=== PATIENT | male | born 1935 | race Caucasian/White ===

== ENCOUNTER 2017-10-10 14:47 | Inpatient (IN) | payer MEDICARE ==
[~2017-10-10] VITALS: Ht 177.8 cm; Wt 75.3 kg
[2017-10-10 15:41] LABS: MEAN CORPUSCULAR HEMOGLOBIN 32.3 pg (27.0-33.0); MEAN CORPUSCULAR HGB CONC 34.7 g/dL (32.0-36.0); MEAN CORPUSCULAR VOLUME 93.1 fL (79-99); PLATELET COUNT (AUTO) 289 K/uL (130-400); RED BLOOD CELL COUNT(AUTO) 5.37 MIL/uL (4.50-6.20); RED CELL DISTRIBUTION WIDTH 13.6 % (11.0-15.5); WHITE BLOOD COUNT (AUTO) 10.4 K/uL (4.8-10.8)
[2017-10-10 16:00] LABS: ALBUMIN 3.5 g/dL (3.5-5.0); BILIRUBIN,TOTAL 0.7 mg/dL (0.2-1.0); CREATINE KINASE MB 1.3 ng/mL (0.5-3.6); CREATININE 1.1 mg/dL (0.5-1.5); POTASSIUM 4.4 mmol/L (3.5-5.1); TOTAL PROTEIN, SERUM 7.6 g/dL (6.0-8.3)
[2017-10-10 16:11] LABS: BAND NEUTROPHILS % (MANUAL) 2 % (0-2); EOSINOPHILS % (MANUAL) 3 % (1-6); LYMPHOCYTES % (MANUAL) 3 % (22-44); MAN.DIFF COMMENT-IMPRESSION MANUAL DIFFERENTIAL; METAMYELOCYTES % 1 % (0-0); MONOCYTES % (MANUAL) 7 % (2-9); PLATELET MORPHOLOGY COMMENT ADEQUATE; REACTIVE LYMPHOCYTES 6 % (0-0); SEGMENTED NEUTROPHILS % 78 % (40-70)
[2017-10-10] MEDS ORDERED: IOPAMIDOL-370 100 ML VIAL IV ONE (16:39)
[2017-10-10 17:06] LABS: B-TYPE NATRIURETIC PEPTIDE 43 pg/mL (0-100)
[2017-10-10] MEDS ORDERED: SODIUM CHLORIDE 0.9% 1000ML 1,000 ML IV ONE (20:31)
[2017-10-10] MEDS ORDERED: LEVOFLOXACIN 500 MG/D5W 100 ML 100 ML ONE (20:31)
[2017-10-10] MEDS ORDERED: ACETAMINOPHEN 325 MG TAB ONE (22:15)
[2017-10-10] MEDS: SODIUM CHLORIDE 0.9% 1000ML 1,000 ML IV SCH (22:41)
[2017-10-10] MEDS ORDERED: ACETAMINOPHEN-CODEINE 300/30MG TAB PO PRN (22:45)
[2017-10-10] MEDS ORDERED: ONDANSETRON HCL 4 MG/2 ML VIAL IV PRN (22:45)
[2017-10-11] VITALS (9 sets, daily range): BP systolic 131–174; BP diastolic 59–92
[2017-10-11] MEDS ORDERED: HYDRALAZINE HCL 20 MG/ML VIAL ONE ×2 (00:22→05:27)
[2017-10-11] MEDS ORDERED: ACETAMINOPHEN-CODEINE 300/30MG TAB ONE (01:45)
[2017-10-11 05:52] LABS: BASOPHILS % (AUTO) 0.5 % (0.0-5.0); EOSINOPHILS % (AUTO) 3.8 % (0.0-8.0); HEMATOCRIT 48.7 % (42-54); LYMPHOCYTES % (AUTO) 9.4 % (21.0-51.0); MEAN CORPUSCULAR HEMOGLOBIN 31.9 pg (27.0-33.0); MEAN CORPUSCULAR HGB CONC 34.2 g/dL (32.0-36.0); MEAN CORPUSCULAR VOLUME 93.4 fL (79-99); NEUTROPHILS % (AUTO) 74.3 % (40.0-77.0); NUCLEATED RED BLOOD CELLS 0.2 % (0.0-0.19); PLATELET COUNT (AUTO) 275 K/uL (130-400); RED BLOOD CELL COUNT(AUTO) 5.22 MIL/uL (4.50-6.20); RED CELL DISTRIBUTION WIDTH 13.7 % (11.0-15.5); WHITE BLOOD COUNT (AUTO) 10.5 K/uL (4.8-10.8)
[2017-10-11 06:03] LABS: CREATININE 1.3 mg/dL (0.5-1.5); POTASSIUM 4.1 mmol/L (3.5-5.1)
[2017-10-11] MEDS ORDERED: IPRATROPIUM/ALBUTEROL SULFATE 3 ML SOLUTION IH ONE (07:33)
[2017-10-11 09:01] LABS: INR 1.18 (0.85-1.15); PARTIAL THROMBOPLASTIN TIME 29.7 SEC (26.3-35.5); PROTHROMBIN TIME 12.3 SEC (9.6-11.6)
[2017-10-11] MEDS: IPRATROPIUM/ALBUTEROL SULFATE 3 ML SOLUTION IH SCH ×3 (10:23→20:39)
[2017-10-11] MEDS: PANTOPRAZOLE SODIUM 40 MG TABLET.DR PO SCH (11:02)
[2017-10-11] MEDS: SODIUM CHLORIDE 0.9% 1000ML 1,000 ML IV SCH ×3 (11:04→21:34)
[2017-10-11 13:10] LABS: APPEARANCE BODY FLUID TURBID (CLEAR); COLOR,BODY FLUID RED (LT YELLOW); SPECIMENTYPE,BODY FLUID PLEURAL
[2017-10-11 13:11] LABS: BODY FLUID WBC 1129 /cu. mm.; TOTAL VOLUME,BODY FLUID 1500 mL
[2017-10-11 13:12] LABS: BODY FLUID RBC 100375 /cu. mm.
[2017-10-11 13:15] LABS: GLUCOSE,BODY FLUID 138 mg/dL (1-40)
[2017-10-11 13:31] LABS: BF LYMPHOCYTE 49 %; BF MESOTHELIAL 42 %; BF MONOCYTE 4 %
[2017-10-12] MEDS: IPRATROPIUM/ALBUTEROL SULFATE 3 ML SOLUTION IH SCH ×7 (00:20→22:37)
[2017-10-12] MEDS: HYDRALAZINE HCL 20 MG/ML VIAL IV PRN ×3 (00:31→20:53)
[2017-10-12 03:00] VITALS: BP 149/79
[2017-10-12] MEDS: SODIUM CHLORIDE 0.9% 1000ML 1,000 ML IV SCH ×2 (05:12→15:23)
[2017-10-12] MEDS: ACETAMINOPHEN 325 MG TAB PO PRN (06:03)
[2017-10-12 07:39] VITALS: BP 165/75
[2017-10-12] MEDS: PANTOPRAZOLE SODIUM 40 MG TABLET.DR PO SCH (10:02)
[2017-10-12] MEDS: LEVOFLOXACIN 500 MG/D5W 100 ML 100 ML IV SCH (10:02)
[2017-10-12 11:21] VITALS: BP 160/67
[2017-10-12 16:08] VITALS: BP 165/76
[2017-10-12 19:00] VITALS: BP 169/86
[2017-10-13] VITALS (7 sets, daily range): BP systolic 122–184; BP diastolic 57–94
[2017-10-13] MEDS: ACETAMINOPHEN 325 MG TAB PO PRN ×2 (01:21→19:52)
[2017-10-13] MEDS: IPRATROPIUM/ALBUTEROL SULFATE 3 ML SOLUTION IH SCH ×6 (02:54→23:11)
[2017-10-13] MEDS ORDERED: LEVO125T95 PO (06:11)
[2017-10-13] MEDS: PANTOPRAZOLE SODIUM 40 MG TABLET.DR PO SCH (09:27)
[2017-10-13] MEDS: LEVOFLOXACIN 500 MG/D5W 100 ML 100 ML IV SCH (09:29)
[2017-10-13] MEDS: SODIUM CHLORIDE 0.9% 1000ML 1,000 ML IV SCH ×4 (09:31→22:41)
[2017-10-13] MEDS: HYDRALAZINE HCL 20 MG/ML VIAL IV PRN ×2 (12:55→19:51)
[2017-10-14] VITALS (7 sets, daily range): BP systolic 120–163; BP diastolic 58–97
[2017-10-14] MEDS: IPRATROPIUM/ALBUTEROL SULFATE 3 ML SOLUTION IH SCH ×4 (02:05→14:00)
[2017-10-14 05:42] LABS: POTASSIUM 3.8 mmol/L (3.5-5.1)
[2017-10-14] MEDS: SODIUM CHLORIDE 0.9% 1000ML 1,000 ML IV SCH ×3 (06:58→21:57)
[2017-10-14] MEDS: PANTOPRAZOLE SODIUM 40 MG TABLET.DR PO SCH (09:21)
[2017-10-14] MEDS ORDERED: METO-391 PO (10:00)
[2017-10-14] MEDS ORDERED: NIFE60TA71 PO (10:04)
[2017-10-14] MEDS ORDERED: LEVO125T11 PO (10:04)
[2017-10-14] MEDS ORDERED: VENL-53 PO (10:04)
[2017-10-14] MEDS ORDERED: FURO20TA4 PO (10:04)
[2017-10-14] MEDS ORDERED: LISI-613 PO (10:04)
[2017-10-14] MEDS ORDERED: ATOR-2 PO (10:04)
[2017-10-14] MEDS ORDERED: DIATR MEGLU/DIATRIZOATE SODIUM 30 ML BOTTLE PO ONE (15:25)
[2017-10-14] MEDS ORDERED: IOPAMIDOL-370 100 ML VIAL IV ONE (17:42)
[2017-10-15] MEDS: HYDRALAZINE HCL 20 MG/ML VIAL IV PRN ×4 (00:16→21:57)
[2017-10-15 04:00] VITALS: BP 179/90
[2017-10-15 05:51] LABS: CREATININE 0.9 mg/dL (0.5-1.5); POTASSIUM 3.9 mmol/L (3.5-5.1)
[2017-10-15] MEDS: SODIUM CHLORIDE 0.9% 1000ML 1,000 ML IV SCH (05:56)
[2017-10-15] MEDS ORDERED: IPRATROPIUM/ALBUTEROL SULFATE 3 ML SOLUTION IH ONE (07:24)
[2017-10-15 08:00] VITALS: BP 145/79
[2017-10-15] MEDS: PANTOPRAZOLE SODIUM 40 MG TABLET.DR PO SCH (08:41)
[2017-10-15] MEDS: LEVOFLOXACIN 500 MG/D5W 100 ML 100 ML IV SCH (08:41)
[2017-10-15 11:00] VITALS: BP 182/85
[2017-10-15] MEDS: IPRATROPIUM/ALBUTEROL SULFATE 3 ML SOLUTION IH SCH (11:01)
[2017-10-15] MEDS: LORATADINE 10 MG TABLET PO SCH (13:44)
[2017-10-15] MEDS: BENZONATATE 100 MG CAPSULE PO PRN ×2 (13:44→21:17)
[2017-10-15 16:00] VITALS: BP 190/88
[2017-10-15] MEDS ORDERED: IPRATROPIUM/ALBUTEROL SULFATE 3 ML SOLUTION IH SCH (18:00)
[2017-10-15 19:45] VITALS: BP 191/90
[2017-10-15] MEDS: METOPROLOL TARTRATE 25 MG TAB PO SCH (19:59)
[2017-10-15] MEDS: VENLAFAXINE HCL 75 MG TAB PO SCH (19:59)
[2017-10-15] MEDS: ATORVASTATIN CALCIUM 40 MG TABLET PO SCH (20:17)
[2017-10-16] VITALS (16 sets, daily range): BP systolic 121–193; BP diastolic 62–103
[2017-10-16 05:46] LABS: INR 1.23 (0.85-1.15); PARTIAL THROMBOPLASTIN TIME 26.1 SEC (26.3-35.5); PROTHROMBIN TIME 12.9 SEC (9.6-11.6)
[2017-10-16] MEDS: LEVOTHYROXINE 125 MCG TABLET PO SCH (06:42)
[2017-10-16] MEDS: LEVOFLOXACIN 500 MG/D5W 100 ML 100 ML IV SCH (09:54)
[2017-10-16] MEDS: METOPROLOL TARTRATE 25 MG TAB PO SCH ×2 (09:55→19:54)
[2017-10-16] MEDS ORDERED: FENTANYL CITRATE PF 50 MCG/1 ML 2ML VIAL ONE (11:52)
[2017-10-16] MEDS ORDERED: MIDAZOLAM HCL 1 MG/ML 2ML VIAL ONE (11:53)
[2017-10-16] MEDS: LISINOPRIL 20 MG TABLET PO SCH (12:43)
[2017-10-16] MEDS: FUROSEMIDE 20 MG TABLET PO SCH (12:43)
[2017-10-16] MEDS: LORATADINE 10 MG TABLET PO SCH (12:43)
[2017-10-16] MEDS: PANTOPRAZOLE SODIUM 40 MG TABLET.DR PO SCH (12:43)
[2017-10-16] MEDS: NIFEDIPINE ER 30 MG TAB PO SCH (12:44)
[2017-10-16] MEDS: HYDRALAZINE HCL 20 MG/ML VIAL IV PRN (12:45)
[2017-10-16] MEDS: IPRATROPIUM/ALBUTEROL SULFATE 3 ML SOLUTION IH SCH (13:01)
[2017-10-16] MEDS: ATORVASTATIN CALCIUM 40 MG TABLET PO SCH (19:53)
[2017-10-16] MEDS: VENLAFAXINE HCL 75 MG TAB PO SCH (19:54)
[2017-10-17] MEDS: BENZONATATE 100 MG CAPSULE PO PRN ×2 (00:39→08:26)
[2017-10-17 03:00] VITALS: BP 143/66
[2017-10-17 05:41] LABS: BASOPHILS % (AUTO) 0.3 % (0.0-5.0); EOSINOPHILS % (AUTO) 3.3 % (0.0-8.0); HEMATOCRIT 43.3 % (42-54); MEAN CORPUSCULAR HEMOGLOBIN 31.3 pg (27.0-33.0); MEAN CORPUSCULAR HGB CONC 34.2 g/dL (32.0-36.0); MEAN CORPUSCULAR VOLUME 91.8 fL (79-99); MONOCYTES % (AUTO) 11.4 % (3.0-13.0); NEUTROPHILS % (AUTO) 79.3 % (40.0-77.0); NUCLEATED RED BLOOD CELLS 0.1 % (0.0-0.19); PLATELET COUNT (AUTO) 288 K/uL (130-400); RED BLOOD CELL COUNT(AUTO) 4.72 MIL/uL (4.50-6.20); RED CELL DISTRIBUTION WIDTH 14.3 % (11.0-15.5); WHITE BLOOD COUNT (AUTO) 11.4 K/uL (4.8-10.8)
[2017-10-17 05:50] LABS: POTASSIUM 3.5 mmol/L (3.5-5.1)
[2017-10-17] MEDS ORDERED: POTASSIUM CHLORIDE 20 MEQ ERTAB PO ONE (06:05)
[2017-10-17 06:11] LABS: LYMPHOCYTES % (AUTO) 5.7 % (21.0-51.0)
[2017-10-17] MEDS: LEVOTHYROXINE 125 MCG TABLET PO SCH (06:22)
[2017-10-17] MEDS: IPRATROPIUM/ALBUTEROL SULFATE 3 ML SOLUTION IH SCH (07:23)
[2017-10-17 07:34] VITALS: BP 160/76
[2017-10-17] MEDS: LORATADINE 10 MG TABLET PO SCH (08:12)
[2017-10-17] MEDS: LISINOPRIL 20 MG TABLET PO SCH (08:12)
[2017-10-17] MEDS: METOPROLOL TARTRATE 25 MG TAB PO SCH (08:13)
[2017-10-17] MEDS: PANTOPRAZOLE SODIUM 40 MG TABLET.DR PO SCH (08:13)
[2017-10-17] MEDS: FUROSEMIDE 20 MG TABLET PO SCH (09:00)
[2017-10-17] MEDS ORDERED: POTASSIUM CHLORIDE 20MEQ/100ML 100 ML IV PRN (10:30)
[2017-10-17] MEDS ORDERED: POTASSIUM CHLORIDE 10% ELIXIR 20 MEQ/15 ML UDCUP PO PRN (10:30)
[2017-10-17] MEDS ORDERED: POTASSIUM CHLORIDE 20 MEQ ERTAB PO PRN (10:30)
[2017-10-17] MEDS ORDERED: LIDOCAINE HCL-MPF 1% 2ML VIAL IVP PRN (10:30)
[2017-10-17 11:23] VITALS: BP 123/68
[2017-10-17] MEDS: NIFEDIPINE ER 30 MG TAB PO SCH (12:18)
[2017-10-17 16:17] VITALS: BP 165/89
== END 2017-10-17 17:03 | disposition home or self-care (01) | DRG 180 ==
LOC: EDH 14:47 → EDHIP 18:25 → 4BH 10-11 08:13
PROVIDERS: ADMIT Family Medicine; ATTEND Family Medicine
PROC: 0W9B3ZZ Drainage of Left Pleural Cavity, Percutaneous Approach (ICD-10-PCS; 2017-10-11)
PROC: 0B9K3ZX Drainage of Right Lung, Percutaneous Approach, Diagnostic (ICD-10-PCS; principal; 2017-10-17)
DX: C34.90 Malignant neoplasm of unspecified part of unspecified bronchus or lung (principal); J18.1 Lobar pneumonia, unspecified organism; I82.3 Embolism and thrombosis of renal vein; E22.2 Syndrome of inappropriate secretion of antidiuretic hormone; N13.30 Unspecified hydronephrosis; E86.0 Dehydration; J90 Pleural effusion, not elsewhere classified; I10 Essential (primary) hypertension; R59.1 Generalized enlarged lymph nodes; E27.9 Disorder of adrenal gland, unspecified; E89.0 Postprocedural hypothyroidism; I25.10 Atherosclerotic heart disease of native coronary artery without angina pectoris; J40 Bronchitis, not specified as acute or chronic; N28.89 Other specified disorders of kidney and ureter; Z87.01 Personal history of pneumonia (recurrent); Z88.0 Allergy status to penicillin
CPT/HCPCS: 32405; 32555; 36415; 71045; 71046; 71260; 71275; 74177; 77012; 80048; 80053; 82550; 82553; 82945; 83615; 83880; 83986; 84157; 84484; 85025; 85610; 85730; 87070; 87071; 87101; 87116; 87205; 87206; 87804; 88108; 88305; 88341; 88342; 89051; 93005; 94640; 94664; 94760; J0360; J1956; J2250; J3010; J7030; Q9963; Q9967

== ENCOUNTER 2017-11-20 19:41 | Inpatient (IN) | payer MEDICARE ==
[~2017-11-20] VITALS: Ht 177.8 cm; Wt 71.7 kg
[~2017-11-20 19:41] MED LIST: ATOR-2 PO; FURO20TA4 PO; LEVO125T95 PO; LISI-613 PO; METO-391 PO; NIFE60TA71 PO; VENL-53 PO
[2017-11-20] MEDS ORDERED: SODIUM CHLORIDE 0.9% 1000ML 1,000 ML IV ONE (20:00)
[2017-11-20 20:28] LABS: BASOPHILS % (AUTO) 0.3 % (0.0-5.0); EOSINOPHILS % (AUTO) 0.1 % (0.0-8.0); HEMATOCRIT 47.2 % (42-54); LYMPHOCYTES % (AUTO) 2.2 % (21.0-51.0); MEAN CORPUSCULAR HEMOGLOBIN 30.6 pg (27.0-33.0); MEAN CORPUSCULAR VOLUME 87.4 fL (79-99); MONOCYTES % (AUTO) 2.4 % (3.0-13.0); NUCLEATED RED BLOOD CELLS 0.2 % (0.0-0.19); PLATELET COUNT (AUTO) 71 K/uL (130-400); RED BLOOD CELL COUNT(AUTO) 5.39 MIL/uL (4.50-6.20); RED CELL DISTRIBUTION WIDTH 14.8 % (11.0-15.5); WHITE BLOOD COUNT (AUTO) 7.5 K/uL (4.8-10.8)
[2017-11-20 20:55] LABS: ALBUMIN 2.5 g/dL (3.5-5.0); BILIRUBIN,TOTAL 0.9 mg/dL (0.2-1.0); CREATININE 0.9 mg/dL (0.5-1.5); POTASSIUM 3.9 mmol/L (3.5-5.1); TOTAL PROTEIN, SERUM 6.2 g/dL (6.0-8.3)
[2017-11-20 21:14] LABS: APPEARANCE,URINE Clear (CLEAR); BILIRUBIN,URINE Small (NEGATIVE); COLOR,URINE Dark Yellow (YELLOW); GLUCOSE, URINE (UA) Negative (NEGATIVE); KETONES,URINE 15 mg/dL (NEGATIVE); LEUKOCYTE ESTERASE ,URINE Negative (NEGATIVE); NITRATE,URINE Negative (NEGATIVE); OCCULT BLOOD,URINE Small (NEGATIVE); PH,URINE 5.5 (5.0-8.0); PROTEIN,URINE POS 1+ (NEGATIVE)
[2017-11-20 21:21] LABS: BACTERIA,URINE Rare /HPF (None Seen); MUCUS,URINE Moderate LPF (None Seen); RBC,URINE 0-1 /HPF (0-1); SQUAMOUS EPITHELIAL CELL,UR 0-2 /LPF (0-2); WBC,URINE None Seen /HPF (0-1)
[2017-11-21] MEDS ORDERED: ONDANSETRON HCL 4 MG/2 ML VIAL IVP PRN (00:45)
[2017-11-21] MEDS: SODIUM CHLORIDE 0.9% 1000ML 1,000 ML IV SCH ×2 (00:45→08:50)
[2017-11-21] MEDS ORDERED: HYDROCODONE/ACETAMINOPHEN 5/325 MG TAB PO PRN (00:45)
[2017-11-21 05:57] LABS: BASOPHILS % (AUTO) 0.1 % (0.0-5.0); EOSINOPHILS % (AUTO) 0.2 % (0.0-8.0); HEMATOCRIT 47.2 % (42-54); LYMPHOCYTES % (AUTO) 5.9 % (21.0-51.0); MEAN CORPUSCULAR HEMOGLOBIN 30.8 pg (27.0-33.0); MEAN CORPUSCULAR HGB CONC 34.9 g/dL (32.0-36.0); MEAN CORPUSCULAR VOLUME 88.3 fL (79-99); MONOCYTES % (AUTO) 2.7 % (3.0-13.0); NEUTROPHILS % (AUTO) 91.1 % (40.0-77.0); NUCLEATED RED BLOOD CELLS 0.1 % (0.0-0.19); PLATELET COUNT (AUTO) 59 K/uL (130-400); RED BLOOD CELL COUNT(AUTO) 5.34 MIL/uL (4.50-6.20); RED CELL DISTRIBUTION WIDTH 15.1 % (11.0-15.5); WHITE BLOOD COUNT (AUTO) 6.7 K/uL (4.8-10.8)
[2017-11-21 05:59] LABS: CREATININE 1.1 mg/dL (0.5-1.5); POTASSIUM 4.2 mmol/L (3.5-5.1)
[2017-11-21 07:31] LABS: PLATELET MORPHOLOGY COMMENT MARKED DECREASED
[2017-11-21 09:09] VITALS: BP 128/78
[2017-11-21] MEDS ORDERED: LISI40TA4 PO (09:59)
[2017-11-21] MEDS ORDERED: ASPI-555 PO (09:59)
[2017-11-21] MEDS ORDERED: FURO20TA6 PO (09:59)
[2017-11-21] MEDS ORDERED: FUROSEMIDE 20 MG TABLET PO PRN (10:00)
[2017-11-21] MEDS: MEGESTROL 400 MG/10 ML UDCUP PO SCH (10:06)
[2017-11-21 11:00] VITALS: BP 126/80
[2017-11-21] MEDS: NIFEDIPINE ER 30 MG TAB PO SCH (12:53)
[2017-11-21 16:00] VITALS: BP 134/93
[2017-11-21 20:25] VITALS: BP 138/79
[2017-11-21] MEDS: METOPROLOL TARTRATE 25 MG TAB PO SCH (20:54)
[2017-11-21] MEDS: VENLAFAXINE HCL 75 MG TAB PO SCH (20:54)
[2017-11-22] VITALS (7 sets, daily range): BP systolic 93–127; BP diastolic 56–77
[2017-11-22] MEDS: SODIUM CHLORIDE 0.9% 1000ML 1,000 ML IV SCH ×2 (03:12→17:00)
[2017-11-22 05:01] LABS: BASOPHILS % (AUTO) 0.1 % (0.0-5.0); EOSINOPHILS % (AUTO) 0.1 % (0.0-8.0); HEMATOCRIT 44.4 % (42-54); LYMPHOCYTES % (AUTO) 6.7 % (21.0-51.0); MEAN CORPUSCULAR HEMOGLOBIN 30.6 pg (27.0-33.0); MEAN CORPUSCULAR HGB CONC 35.5 g/dL (32.0-36.0); MEAN CORPUSCULAR VOLUME 86.2 fL (79-99); MONOCYTES % (AUTO) 3.3 % (3.0-13.0); NEUTROPHILS % (AUTO) 89.8 % (40.0-77.0); NUCLEATED RED BLOOD CELLS 0.2 % (0.0-0.19); PLATELET COUNT (AUTO) 50 K/uL (130-400); RED BLOOD CELL COUNT(AUTO) 5.15 MIL/uL (4.50-6.20); RED CELL DISTRIBUTION WIDTH 15.1 % (11.0-15.5); WHITE BLOOD COUNT (AUTO) 5.9 K/uL (4.8-10.8)
[2017-11-22 05:13] LABS: POTASSIUM 3.3 mmol/L (3.5-5.1)
[2017-11-22] MEDS: LEVOTHYROXINE 125 MCG TABLET PO SCH (06:38)
[2017-11-22] MEDS: LISINOPRIL 40 MG TABLET PO SCH (08:37)
[2017-11-22] MEDS: NIFEDIPINE ER 30 MG TAB PO SCH (08:37)
[2017-11-22] MEDS: METOPROLOL TARTRATE 25 MG TAB PO SCH ×2 (08:37→20:33)
[2017-11-22] MEDS: ASPIRIN 81 MG EC TAB PO SCH (10:50)
[2017-11-22] MEDS: ATORVASTATIN CALCIUM 40 MG TABLET PO SCH (10:50)
[2017-11-22] MEDS: MEGESTROL 400 MG/10 ML UDCUP PO SCH (10:50)
[2017-11-22] MEDS ORDERED: LIDOCAINE HCL-MPF 1% 2ML VIAL IVP PRN (16:30)
[2017-11-22] MEDS ORDERED: POTASSIUM CHLORIDE 10% ELIXIR 20 MEQ/15 ML UDCUP PO PRN (16:30)
[2017-11-22] MEDS ORDERED: POTASSIUM CHLORIDE 20MEQ/100ML 100 ML IV PRN (16:30)
[2017-11-22] MEDS: POTASSIUM CHLORIDE 20 MEQ ERTAB PO PRN ×3 (17:48→22:44)
[2017-11-22] MEDS: VENLAFAXINE HCL 75 MG TAB PO SCH (20:33)
[2017-11-23 04:00] VITALS: BP 122/74
[2017-11-23] MEDS: SODIUM CHLORIDE 0.9% 1000ML 1,000 ML IV SCH (04:44)
[2017-11-23 05:11] LABS: BASOPHILS % (AUTO) 0.3 % (0.0-5.0); EOSINOPHILS % (AUTO) 0.5 % (0.0-8.0); HEMATOCRIT 41.3 % (42-54); LYMPHOCYTES % (AUTO) 7.4 % (21.0-51.0); MEAN CORPUSCULAR HEMOGLOBIN 30.5 pg (27.0-33.0); MEAN CORPUSCULAR HGB CONC 35.5 g/dL (32.0-36.0); MEAN CORPUSCULAR VOLUME 86.1 fL (79-99); MONOCYTES % (AUTO) 3.2 % (3.0-13.0); NEUTROPHILS % (AUTO) 88.6 % (40.0-77.0); PLATELET COUNT (AUTO) 44 K/uL (130-400); RED CELL DISTRIBUTION WIDTH 14.8 % (11.0-15.5); WHITE BLOOD COUNT (AUTO) 4.5 K/uL (4.8-10.8)
[2017-11-23 05:18] LABS: CREATININE 0.8 mg/dL (0.5-1.5); POTASSIUM 3.5 mmol/L (3.5-5.1)
[2017-11-23] MEDS: LEVOTHYROXINE 125 MCG TABLET PO SCH (06:02)
[2017-11-23] MEDS: POTASSIUM CHLORIDE 20 MEQ ERTAB PO PRN ×2 (06:39→16:02)
[2017-11-23 08:00] VITALS: BP 132/73
[2017-11-23] MEDS: ASPIRIN 81 MG EC TAB PO SCH (10:13)
[2017-11-23] MEDS: MEGESTROL 400 MG/10 ML UDCUP PO SCH (10:13)
[2017-11-23] MEDS: ATORVASTATIN CALCIUM 40 MG TABLET PO SCH (10:14)
[2017-11-23] MEDS: METOPROLOL TARTRATE 25 MG TAB PO SCH (10:15)
[2017-11-23] MEDS: LISINOPRIL 40 MG TABLET PO SCH (10:15)
[2017-11-23 11:00] VITALS: BP 129/80
[2017-11-23] MEDS: NIFEDIPINE ER 30 MG TAB PO SCH (13:54)
[2017-11-23 16:00] VITALS: BP_SYST 109; BP_SYST 90; BP_DIAS 58; BP_DIAS 65
== END 2017-11-23 18:11 | disposition home or self-care (01) | DRG 683 ==
LOC: EDH 19:41 → EDHIP 22:40 → 4CH 11-21 07:49
PROVIDERS: ADMIT Internal Medicine; ATTEND Internal Medicine
DX: N17.9 Acute kidney failure, unspecified (principal); C78.00 Secondary malignant neoplasm of unspecified lung; L89.159 Pressure ulcer of sacral region, unspecified stage; E44.0 Moderate protein-calorie malnutrition; D69.6 Thrombocytopenia, unspecified; E86.0 Dehydration; C64.9 Malignant neoplasm of unspecified kidney, except renal pelvis; E87.1 Hypo-osmolality and hyponatremia; E03.9 Hypothyroidism, unspecified; I12.9 Hypertensive chronic kidney disease with stage 1 through stage 4 chronic kidney disease, or unspecified chronic kidney disease; K12.1 Other forms of stomatitis; I95.1 Orthostatic hypotension; N18.9 Chronic kidney disease, unspecified; R62.7 Adult failure to thrive; Z85.528 Personal history of other malignant neoplasm of kidney; E87.6 Hypokalemia; F32.9 Major depressive disorder, single episode, unspecified; Z88.0 Allergy status to penicillin; Z28.21 Immunization not carried out because of patient refusal
CPT/HCPCS: 36415; 80048; 80053; 81001; 85025; J2405; J7030